=== PATIENT | female | born 1990 | race Caucasian/White ===

== ENCOUNTER 2022-09-28 08:18 | Inpatient (IN) ==
--- NOTE | 2022-08-21 14:02 | PAT Medication Instructions ---
Medication Instructions Date of Service August 21, 2022 Home Medications citalopram 20 mg tablet (Celexa) 20 mg PO QAM gabapentin 100 mg capsule 100 mg PO TID labetalol 300 mg tablet 300 mg PO BID spironolactone 25 mg tablet (Aldactone) 25 mg PO QAM DO NOT take the morning of surgery spironolactone 25 mg tablet (Aldactone) 25 mg PO QAM Take morning of surgery With a small sip of water, OTHERWISE NOTHING TO EAT OR DRINK AFTER MIDNIGHT: citalopram 20 mg tablet (Celexa) 20 mg PO QAM gabapentin 100 mg capsule 100 mg PO TID labetalol 300 mg tablet 300 mg PO BID Take evening before surgery gabapentin 100 mg capsule 100 mg PO TID labetalol 300 mg tablet 300 mg PO BID Other Notes If you have any questions please call us at [phone] or [phone] or [phone] or [phone]
--- NOTE | 2022-09-02 14:18 | Anesthesiology Consultation ---
Date of Service September 02, 2022 Assessment & Plan (1) Encounter for pre-operative examination: Chart Review Chart Review: Acceptable Risk for Surgery (pending surgeon ordered cardio clearance and previous CBC for comparison ) and Patient seen in Pre Admission Testing - Awaiting cardio clearance (the week of September 14) (Dr. Craig) - Please call PCP office and get most recent CBC done with their office for comparison with anemia at PAT appt Per [facility] appt on 09/02/22, patient denies any recent travel or large group activities. 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 Pt is vaccinated for Covid. Will leave to surgeon's discretion if preop Covid testing needed. Educated on importance of using Covid precautions one week prior to surgery Teaching & Discussion Pre-Anesthesia Teaching/Discussion Notes: Instructed NPO after midnight before surgery,except medications with 15 cc of water. Medication instructions provided according to the [facility] guidelines. History Surgery Operation Date: 09/18/22 07:45 Proposed Procedures p L4-S1 Revision Decompression and Fusion, Spinal Cord Monitoring - Rolando Orellana DO Height/Weight Height: 5 ft 4 in Weight: 124.5 kg Allergies Allergy/AdvReac Type Severity Reaction Status Date / Time No Known Allergies Allergy Verified 08/21/22 10:42 Medications Home Medications Medication Instructions Recorded Confirmed Last Taken citalopram 20 mg tablet (Celexa) 20 mg PO QAM 08/21/22 08/21/22 Unknown gabapentin 100 mg capsule 100 mg PO TID 08/21/22 08/21/22 Unknown labetalol 300 mg tablet 300 mg PO BID 08/21/22 08/21/22 Unknown spironolactone 25 mg tablet 25 mg PO QAM 08/21/22 08/21/22 Unknown (Aldactone) Past Medical History Medical History Anemia Anemia since Covid infection 04/2021 Anxiety Chronic back pain History of COVID-19 04/2021- mild symptoms > resolved Hypertension follows with Dr. Craig Migraine Morbid obesity with BMI of 40.0-44.9, adult Exercise / Class Metabolic Activity II 4-5 Yardwork/Stairs/Walk up hill (one flight of stairs - no chest pain or SOB ) Past Family History Family History Other No family history of adverse response to anesthesia Past Surgical History Surgical History History of bilateral tubal ligation History of section 2014 History of cholecystectomy 2014 History of lumbar discectomy x3 History of tonsillectomy 2020 History of wisdom tooth extraction Past Anesthesia History No Hx of Anesthesia Complications and No Family Hx of Anesthesia Complications History of PONV No Hx of PONV and No Hx of Motion Sickness Social History Smoking Status: Never smoker Do You Dip or Chew Tobacco: No Hx Alcohol Use: Yes (very rarely) alcohol intake frequency: holidays/special occasions only Hx Substance Use: No substance use type: does not use Review of Systems Occ reflux - improved with OTC antacids Snoring - no hx of sleep study Patient denies chest pain, shortness of breath, dyspnea on exertion, cough, wheezing, palpitations. No hx of seizures, stroke, [place]. No hx of blood clots or blood transfusions Physical Exam Vital Signs VITALS BP 162/106 (recheck manually 170/106) P 80 TEMP 98.1 SP02 100% RESP 16 Constitutional no acute distress ENMT Mouth: no TMJ clicking Thyromental Distance: > or= 3.5 Finger Breadths (3.5) Mallampati Class: III Permanent retainer to bottom front teeth Neck + short neck and + thick neck; neck extension not limited Respiratory normal respiratory effort; no respiratory distress Auscultation: lungs clear to auscultation bilaterally; no wheezes Cardiovascular Rate/Rhythm: regular rate and regular rhythm Heart Sounds: no murmur Vessels: no carotid bruit Musculoskeletal Spine: no pain with cervical ROM Extremities: extremities normal to inspection Psychiatric Orientation: alert Lab Results Anesthesia Preop Results Results Anesthesia Widget: WBC 7.44 K/ul (4.8-10.8) 09/02/22 Hgb 11.4 g/dl (12.0-16.0) L 09/02/22 Hct 36.9 % (37.0-47.0) L 09/02/22 Plt 258 K/uL (130-400) 09/02/22 Na 139 mmol/L (136-145) 09/02/22 K 3.8 mmol/L (3.5-5.1) 09/02/22 Cl 105 mmol/L (98-107) 09/02/22 CO2 25 mmol/L (21-32) 09/02/22 BUN 9 mg/dl (6-23) 09/02/22 Creat 0.69 mg/dl (0.6-1.2) 09/02/22 Glucose Level 119 mg/dl (70-99(Fasting)) H 09/02/22 PT 10.8 Seconds (9.0-12.0) 09/02/22 PTT 26.0 Seconds (21.0-31.0) 09/02/22 INR 1.0 (0.9-1.1) 09/02/22 Urine Color Yellow 09/02/22 Urine Appearance Clear (Clear) 09/02/22 Urine pH 6.0 (4.5-7.5) 09/02/22 Urine Specific [place] 1.025 (1.000-1.030) 09/02/22 Urine Protein Negative (Negative) 09/02/22 Urine Glucose (UA) Negative (Negative) 09/02/22 Urine Ketones Trace (Negative) H 09/02/22 Urine Blood Trace (Negative) H 09/02/22 Urine Nitrite Negative (Negative) 09/02/22 Urine Bilirubin Negative (Negative) 09/02/22 Urine Urobilinogen Negative (Negative) 09/02/22 Urine Leukocyte Esterase Negative (Negative) 09/02/22 Urine WBC (Auto) 1-5 /hpf (0-5) 09/02/22 Urine RBC (Auto) 5-10 /hpf (0-4) H 09/02/22 Urine Hyaline Casts (Auto) 0 /lpf (0-5) 09/02/22 Urine Epithelial Cells (Auto) >30 /lpf (0-5) H 09/02/22 Urine Bacteria (Auto) Negative (Negative) 09/02/22 Blood Type O Positive 09/02/22 Antibody Screen NEGATIVE 09/02/22 Testing Laboratory Results Chronic anemia per patient Electrocardiogram Date: 09/02/22 Findings: + NSR @ (83bpm ) Normal EKG per cardio Chest X-Ray Date: 09/02/22 Findings: + NAD FINDINGS: PA and lateral chest radiographs are obtained. No prior studies are available for comparison at the time of dictation. The cardiomediastinal silhouette is unremarkable. The lungs and pleural spaces are clear. There is no pneumothorax. The bony thorax appears intact. Cholecystectomy clips are noted in the right upper quadrant. Echocardiogram Date: 06/20/21 EF: 55-60% LV Function: normal Other Findings: no LVH or no diastolic dysfunction Mild TR. COVID-19 Risk Screen Screening Information COVID-19 Screen Date: 09/02/22 Exposure 21 Days Family/Household +COVID Last 21 Days: No Exposure 10 Days Any COVID Exposure Last 10 Days: No Symptoms Last 10 Days Experienced COVID Sx Last 10 Days: No + COVID 0-90 Days COVID + in Last 0-90 Days: No Risk Plan COVID Risk Plan: No Risk Identified Patient Education COVID Preop Screening Education Complete: Yes
[~2022-09-28 08:18] MED LIST: ACETAMINOPHEN 500 MG TAB PO SCH; CeleBREX 200 MG CAP PO SCH; GABAPENTIN 900 MG DOSE PO SCH; LR 15ML/HR IV SCH
[2022-09-28] MEDS ORDERED: MIDAZOLAM HCL 1 MG/ML 2ML VIAL ONE (09:11)
[2022-09-28] MEDS ORDERED: fentaNYL citrate PF 100 MCG/2 ML VIAL ONE (09:11)
--- NOTE | 2022-09-28 09:26 | History & Physical Bridge Note ---
Date of Service September 28, 2022 History & Physical Bridge Note I have examined the patient, reviewed the History & Physical and in the interval since the performance of the History & Physical I have noted the following changes of clinical significance: no changes noted
--- NOTE | 2022-09-28 09:27 | History & Physical Report ---
Date of Service September 28, 2022 Assessment & Plan (1) Neurogenic claudication due to lumbar spinal stenosis: Plan: L4-S1 revision decompression and fusion History of Present Illness Chief Complaint: Back and leg pain Primary Care Provider: Henrique Collins This is a 32-year-old female that presents with persistent back and leg pain after failing since course of nonoperative care she is here for surgical invention. Allergies Allergy/AdvReac Type Severity Reaction Status Date / Time No Known Allergies Allergy Verified 09/28/22 08:32 Home Medications Medication Instructions Recorded Confirmed Type citalopram 20 mg tablet (Celexa) 20 mg PO QAM 08/21/22 09/28/22 History gabapentin 100 mg capsule 100 mg PO TID 08/21/22 09/28/22 History labetalol 300 mg tablet 300 mg PO BID 08/21/22 09/28/22 History spironolactone 25 mg tablet 25 mg PO QAM 08/21/22 09/28/22 History (Aldactone) Past Med/Surg History Medical History Anemia Anemia since Covid infection 04/2021 Anxiety Chronic back pain History of COVID-19 04/2021- mild symptoms > resolved Hypertension follows with Dr. Craig Migraine Morbid obesity with BMI of 40.0-44.9, adult Surgical History History of bilateral tubal ligation History of section 2015 History of cholecystectomy 2014 History of lumbar discectomy x3 History of tonsillectomy 2020 History of wisdom tooth extraction Family History Other No family history of adverse response to anesthesia Social History Smoking Status: Never smoker Second Hand Exposure: No; Do You Dip or Chew Tobacco: No; Tobacco Cessation Education Requested by Patient: No Hx Alcohol Use: Yes (very rarely) Hx Substance Use: No Preferred Language: Croatian Communication Ability: Effective [facility] Representative Required: No Beliefs That Will Affect Care: None Current Living Situation: Family Current Living Situation Comment: Lives with daughter Other Information That Helps Us Care for You: No Feels Safe at Home: Yes Safety Concerns: Feels Safe At This Time Assistive Devices: Glasses Physical Exam Physical Exam: Patient is alert and oriented Heart regular rhythm Lungs clear Results & Data Results & Data Vital Signs (Past 12 Hours) Vital Signs Temp Pulse Resp BP Pulse Ox O2 Del Method 09/28/22 08:49 36.7 C 76 18 121/75 98 Room Air
[2022-09-28] MEDS ORDERED: BUPIVACAINE/EPINEPHRINE 0.25% 1:200,000 30 ML VIAL ONE (09:58)
[2022-09-28] MEDS ORDERED: ceFAZolin 330 MG/ML 1 GM VIAL ONE (09:58)
[2022-09-28] MEDS ORDERED: KETAMINE 50 MG/5 ML SYRINGE ONE (10:33)
[2022-09-28] MEDS ORDERED: ePHEDrine sulfate 50 MG/ML AMP ONE ×2 (10:41→10:43)
[2022-09-28] MEDS ORDERED: PROPOFOL IV EMULSION 10 MG/ML 20 ML VIAL IV ONE (10:42)
[2022-09-28] MEDS ORDERED: ROCURONIUM BROMIDE 10 MG/ML 5 ML VIAL IV ONE ×8 (10:42)
[2022-09-28] MEDS ORDERED: LIDOCAINE 2% 2 ML VIAL/AMP(20MG/ML) INFIL ONE (10:42)
[2022-09-28] MEDS ORDERED: DEXAMETHASONE SOD INJ 4 MG/ML VIAL ONE (10:43)
[2022-09-28] MEDS ORDERED: ONDANSETRON INJ 2 MG/ML 2 ML VIAL ONE (10:43)
[2022-09-28] MEDS ORDERED: SUGAMMADEX SODIUM 200 MG/2 ML VIAL IV ONE (11:58)
[2022-09-28] MEDS ORDERED: HYDROmorphone INJ 2 MG/ML SYR/VIAL ONE (12:00)
--- NOTE | 2022-09-28 12:05 | Operative Report ---
Post Operative Report Pre & Post Diagnosis Operation Date: 09/28/22 10:05 Pre-Op Diagnosis: Neurogenic claudication due to lumbar spinal stenosis Morbid obesity Post-Op Diagnosis: Same I identified the patient and participated in the time-out.: Yes Procedure Operation Date: 09/28/22 10:05 Actual Procedures 1. Revision decompression with bilateral medial facetectomies and foraminotomies L3-L4, L4-5 and L5-S1. #2 posterior spinal fusion L4-L5 L5-S1. #3 placement posterior instrumentation L4-5 L5-S1. #4 interbody fusion L4-L5 L5-S1. #5 placement of Spira 11 x 26 mm at L4-5 and 13 x 26 mm at L5-S1. #6 placement locally harvested morselized autograft in the posterior gutters. #7 placement of I factor combined with V toss in the interbody space and posterior gutters. Surgeon Rolando Orellana, DO Backup Administrative Coordinator Clare Rose Estimated Blood Loss 50 Findings See Below The patient is 5 foot 4 weighing over 122 kg with a BMI in excess of 46. The patient's body habitus did contribute to significant technical difficulty requiring her deepest retractors and longer instruments in order to perform her procedure. This had at least 50% increased operative time. Specimens none Indications This is a 32-year-old female who presents above-mentioned diagnosis after failing since course of nonoperative care is here for surgical invention. Description of Procedure Patient was met with identified informed consent obtained. Patient was then taken to the operative suite underwent a patient placed in a prone position the [place] table top Micah frame. All bony prominences well-padded eyes inspected to ensure no external pressure placed upon them. This point the lumbar spine was prepped and draped in normal sterile fashion. Sharp dissection with the assistance of Bovie cautery was then performed down to and exposing the remaining lamina and transverse processes of L4-L5 and sacral ala bilaterally. From a caudal cephalad fashion complete revision laminectomy L5 L4 and partial laminectomy of L3 was performed including bilateral medial facetectomies and foraminotomies dressing all stenosis and overgrowth of scar. Pedicle screws then placed in L4-L5 and S1 levels bilaterally with assistance of fluoroscopy and the properly sized key placed. By way of a trans foraminal approach on the right complete discectomy of L5-S1 was performed endplates corrected to subcortical bleeding bone and a 13 x 26 mm Spira cage with I factor tapped in position. Then proceeded to L for L5 and again by way of a transfemoral approach and right complete discectomy performed endplates curetted to subcortically bone and a 11 x 26 mm Spira cage with I factor tapped in position. The rods were then locked in final position bilaterally. The transverse processes of L4-5 and sacral ala burred to subcortically and bone. I factor amount of the test and locally harvested morselized autograft was placed in the posterior gutters. 15 round UNA inserted. The incision was then closed with 1 Vicryl the fascia 2-0 Vicryl subcutaneously and 4 Monocryl for final skin closure. Steri-Strips sterile dressing placed. Patient waken taken to PACU in stable condition. Please note spinal cord monitoring was utilized at the procedure no changes noted. Lastly Clare Rose was present at the entire surgery involved the patient positioning complex portions of the surgery and final skin closure. I attest to the content of the Intraoperative Record and any orders documented therein. Any exceptions are noted below.
--- NOTE | 2022-09-28 12:43 | Fluoroscopy Report ---
FL lumbar spine 2-3V CLINICAL HISTORY: L4-S1 DFI TECHNIQUE: 2 views were obtained with the C-arm in the OR with the above procedure. Total fluoroscopy time was 400 seconds. Radiation dose was 75.37 mGy. Comparison: None available at the time of this dictation. FINDINGS/IMPRESSION: Intraoperative images were obtained of L4-S1 discectomy and fusion. Please correlate with intraoperative fluoroscopy and operative report. ACT 112: Negative or not required by law. Electronically signed by: Alli Lucas M.D. 09/28/2022 12:42 PM
--- NOTE | 2022-09-28 13:00 | Anesthesiology Progress Note ---
Date of Service September 28, 2022 Anesthesia Post Procedure Vital Signs Vital Signs: Temp Pulse Pulse Resp BP Pulse Ox O2 Del Method 09/28/22 12:50 87 14 136/86 95 Nasal Cannula 09/28/22 12:40 77 14 122/96 97 Oxymask 09/28/22 12:30 67 13 136/82 97 Oxymask 09/28/22 12:20 97.5 F L 74 17 141/84 H 99 Oxymask 09/28/22 08:49 98.1 F 76 18 121/75 98 Room Air O2 Flow Rate 09/28/22 12:50 2 09/28/22 12:40 6 09/28/22 12:30 6 09/28/22 12:20 6 09/28/22 08:49 Pain Intensity Back: Pain Intensity: 9 Transfer of Care Handoff Completed per policy Notes Mental Status: alert / awake / arousable and participated in evaluation Patient Amnestic to Procedure: Yes Nausea / Vomiting: adequately controlled Pain: adequately controlled Airway Patency, RR, SpO2: stable & adequate BP & HR: stable & adequate Hydration State: stable & adequate Anesthetic Complications: no major complications apparent and Pt Satisfied with anesthetic care
[2022-09-28] MEDS ORDERED: ONDANSETRON INJ 2 MG/ML 2 ML VIAL IV PRN (13:21)
[2022-09-28] MEDS ORDERED: DO NOT ADMINISTER PNEUMOCOCCAL VACCINE PRN (13:21)
[2022-09-28] MEDS ORDERED: ALUMINUM/MAGNESIUM SUSP 30 ML UDC PO PRN (13:21)
[2022-09-28] MEDS ORDERED: HYDROmorphone INJ 1 MG/ML SYRINGE IV PRN (13:21)
[2022-09-28] MEDS ORDERED: FAMOTIDINE 20 MG TAB PO PRN (13:21)
[2022-09-28] MEDS ORDERED: NALOXONE HCL 0.4 MG/1 ML VIAL/CARP IV PRN (13:21)
[2022-09-28] MEDS ORDERED: PROMETHAZINE HCL 12.5 MG in SODIUM CHLORIDE 0.9% 50 ML IV PRN (13:21)
[2022-09-28] MEDS ORDERED: MAGNESIUM HYDROXIDE SUSP 30 ML UDC PO PRN (13:21)
[2022-09-28] MEDS ORDERED: DO NOT ADMINISTER FLU VACCINE PRN (13:21)
[2022-09-28] MEDS ORDERED: SOD PHOSPHATE/SOD BIPHOSPHATE ENEMA 132 ML BTL PR PRN (13:21)
[2022-09-28] MEDS ORDERED: LORazepam 2 MG/1 ML VIAL IV PRN (13:21)
[2022-09-28] MEDS ORDERED: LORazepam 0.5 MG TAB PO PRN (13:21)
[2022-09-28] MEDS ORDERED: diphenhydrAMINE Capsule 25 MG CAP PO PRN (13:21)
[2022-09-28] MEDS ORDERED: ACETAMINOPHEN 500 MG TAB PO PRN (13:21)
[2022-09-28] MEDS ORDERED: METOCLOPRAMIDE HCL INJ 5 MG/ML 2 ML VIAL IV PRN (13:21)
[2022-09-28] MEDS ORDERED: bisacodyL 10 MG SUPP PR PRN (13:21)
[2022-09-28] MEDS ORDERED: HYDROmorphone INJ 0.5 MG/0.5 ML SYR IV PRN (13:21)
[2022-09-28] MEDS ORDERED: ONDANSETRON 4 MG OD TAB PO PRN (13:21)
[2022-09-28] MEDS ORDERED: ACETAMINOPHEN 1,000 MG/100 ML VIAL IV PRN (13:21)
[2022-09-28] MEDS ORDERED: hydrOXYzine HCl 25 MG TAB PO PRN (13:21)
[2022-09-28] MEDS ORDERED: traMADol HCL 50 MG TABLET PO PRN (13:21)
[2022-09-28] MEDS: oxyCODONE HCL IR 5 MG TAB (IMMEDIATE RELEASE) PO PRN ×2 (13:36→19:48)
[2022-09-28] MEDS: LACTATED RINGER'S 1,000 ML IV SCH ×3 (13:36→23:47)
--- NOTE | 2022-09-28 14:33 | Hospitalist Consultation ---
Date of Consultation September 28, 2022 Assessment & Plan (1) Status post lumbar spine operation: 32-year-old female with possible history of hypertension, anxiety, and anemia who was consulted for management of chronic medical conditions status post lumbar spine surgery on 09/28/22. Surgeries performed per operative note: 1. Revision decompression with bilateral medial facetectomies and foraminotomies L3-L4, L4-5 and L5-S1. #2 posterior spinal fusion L4-L5 L5-S1. #3 placement posterior instrumentation L4-5 L5-S1. #4 interbody fusion L4-L5 L5-S1. #5 placement of Spira 11 x 26 mm at L4-5 and 13 x 26 mm at L5-S1. #6 placement locally harvested morselized autograft in the posterior gutters. #7 placement of I factor combined with V toss in the interbody space and posterior gutters. Reviewed outpatient 07/27/22 MRI L spine w/o contrast. Impression. 1. Decreased, small right central/right subarticular caudally directed disc extrusion abutting the right L5 transiting spinal nerve roots and mildly narrowing the right subarticular recess at L4-L5. 2. Increased posterior central and right central c ranially directed disc extrusion at L5-S1 with increased mass effect on the right S1 transiting spinal nerve roots and moderate narrowing of the right-sided articular recess. Increased, mild central canal stenosis at L5-S1. -Pain regimen (prn Tylenol, oxycodone, and Dilaudid), Decadron 6mg dailyx3, postop ancef, and PT per ortho spine. Prn hydroxyzine for anxiety. q6 Miralax. -Postop labs in AM, sooner if symptomatic (2) Neurogenic claudication due to lumbar spinal stenosis: Chronic, see above. Prior to this, had hx of lumbar discectomy x3. Continue home gabapentin 100mg PO TID. (3) Hypertension: Stable, continue labetalol 300mg PO BID (halve 1 dose in setting of postop) and spironolactone 25mg PO qAM (per cardiology note, also for HTN). Screened neg for FAB. W/ her large home BP regimen, PCP to consider other causes of secondary HTN. (4) Iron deficiency anemia: Chronic. States was discovered by PCP after 04/2021 covid infection. 09/02/22 Hb 11.4, mcv 75.8. Per 05/2022 iron studies: iron 28. uibc 401. ibc 429. fe sat 6.5%. ferritin 13. Recommend iron supplementation: patient to fill rx (iron polysaccharides 150mg PO BID) sent by PCP in 05/2022. (5) Morbid obesity with BMI of 40.0-44.9, adult: Check a1c with AM labs. (6) Missed period: Last period started on 08/04/22. Check urine hcg. (7) Microscopic hematuria: Per 09/02/22 preop labs. Trace blood. 5-10 RBC /hpf on microscopy. PCP to follow. (8) Hyperlipidemia: Per 05/27/22 outpatient labs, total chol 191, tg 136, hdl 31, ldl 133. Encourage lifestyle modifications. (9) Anxiety: Stable, continue home citalopram 20mg PO qam. Plan Diet, fluids: Regular diet. LR 150mL/hr for now. DVT ppx: Defer to ortho spine. SCDs. code: full dispo: med surg Supervising Physician Co-Signing Physician Notes Patient seen and examined, chart reviewed, case discussed with Dr. Lock and I agree with the assessment and plan as above except as otherwise noted Labs and images reviewed Deya is a 32-year-old female with a history of hypertension, anxiety, anemia who presented for surgical intervention of neurogenic claudication due to lumbar spinal stenosis. S/p revision decompression, facetectomies, and foraminotomies with spinal fusion. Deya is seen at the bedside. She notes she could not feel her R leg and had numbness/tingling preop and now has normal feeling in the leg postop. She is having some postoperative pain, notes she has had several surgeries previous to this and pain in her back is consistent with prior surgies. UNA drain is in place draining serosanguineous fluid. Sensation to soft touch is intact in hands and feet bilaterally, cap refill intact, PT pulse intact bilat. No questions or concerns at bedside. Agree with management as above History of Present Illness Reason for Consultation: postop Requesting Physician: Rolando Orellana DO. spine surgeon Attending Physician: Abhijeet Antonio MD. hospitalist History of Present Illness 32-year-old female with past medical history of hypertension, anxiety, iron deficiency anemia, and chronic low back pain w/ R>L radiculopathy s/p 3 lumbar laminectomies who was consulted for management of chronic medical conditions status post lumbar spine surgery on 09/28/22. Currently feels tired/sore. Rates pain at site of surgery as 9/10. States this is her 4th back surgery. Backstory of her back pain: was and was pulling on box, fell backwards. States had laminectomies at L4-L5, L5-S1, L4-L5. 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 Was having radiculopathy symptoms of posterior R leg with complete numb sensation. Numbness/tingling of foot. Pain radiated down back of her thigh/leg. Hx of heavy periods. She has not started taking iron supplementation. She notes she missed her period this past month, last period started on 08/04/22. S/p tubal. Takes gabapentin for her R>L radiculopathy. She took her BP meds this morning. Snores. Denies apnea. Attributes fatigue to working busy schedule. States iron labs checked 05/2022. Reviewed records from [facility] patient portal on patient's phone. Allergies Allergy/AdvReac Type Severity Reaction Status Date / Time No Known Allergies Allergy Verified 09/28/22 08:32 Home Medications Medication Instructions Recorded Confirmed Type citalopram 20 mg tablet (Celexa) 20 mg PO QAM 08/21/22 09/28/22 History gabapentin 100 mg capsule 100 mg PO TID 08/21/22 09/28/22 History labetalol 300 mg tablet 300 mg PO BID 08/21/22 09/28/22 History spironolactone 25 mg tablet 25 mg PO QAM 08/21/22 09/28/22 History (Aldactone) Patient History Medical History Anemia Anemia since Covid infection 04/2021 Anxiety Chronic back pain History of COVID-19 04/2021- mild symptoms > resolved Hypertension follows with Dr. Craig Migraine Morbid obesity with BMI of 40.0-44.9, adult Surgical History History of bilateral tubal ligation History of section 2015 History of cholecystectomy 2014 History of lumbar discectomy x3 History of tonsillectomy 2020 History of wisdom tooth extraction Family History Other No family history of adverse response to anesthesia Social History Smoking Status: Never smoker Second Hand Exposure: No; Do You Dip or Chew Tobacco: No; Tobacco Cessation Education Requested by Patient: No Hx Alcohol Use: Yes (very rarely) Hx Substance Use: No Preferred Language: Nepali Communication Ability: Effective 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 NAD. Cooperative. HEENT: Atraumatic, normocephalic. EOMI Pulm: CTAB. -wheezes, -rales, -rhonchi. No respiratory distress. Cardiac: RRR. Reportedly w/ chronic bilat LE edema. Wearing SANTOS stockings; difficult to assess LE edema. Abdominal: Nontender, nondistended, soft. : + tucker, voiding trial planned for AM of 09/29/22. Msk: Moving all extremities. Back: + UNA drain w/ serosang fluid. Neuro: Sensation to light touch of bilat dorsal feet and hands intact. 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 Integ: Low back bandage is c/d/i. Results & Data Results & Data Vital Signs (Past 12 Hours) Vital Signs Temp Pulse Pulse Pulse Resp BP Pulse Ox 09/28/22 13:50 36.3 C L 64 16 125/72 98 09/28/22 13:20 36.5 C 87 16 133/79 97 09/28/22 13:00 37.0 C 68 12 121/80 97 09/28/22 12:50 87 14 136/86 95 09/28/22 12:40 77 14 122/96 97 09/28/22 12:30 67 13 136/82 97 09/28/22 12:20 36.4 C L 74 17 141/84 H 99 09/28/22 08:49 36.7 C 76 18 121/75 98 O2 Del Method O2 Flow Rate 09/28/22 13:50 Nasal Cannula 2 09/28/22 13:20 Nasal Cannula 2 09/28/22 13:00 Nasal Cannula 2 09/28/22 12:50 Nasal Cannula 2 09/28/22 12:40 Oxymask 6 09/28/22 12:30 Oxymask 6 09/28/22 12:20 Oxymask 6 09/28/22 08:49 Room Air Laboratory Results Intake and Output 09/27/22 09/28/22 09/28/22 22:59 06:59 14:59 Intake Total 1822.5 / 1822.5 Output Total 340 / 340 Balance 1482.5 / 1482.5 Intake: IV 72.5 / 72.5 Lactated Ringer's 1,000 ml @ 15 0 / 0 mls/hr IV .Q24H ANJU Rx#: [id number] ceFAZolin 3000MG 72.5 ml @ 130 72.5 / 72.5 mls/hr IV PREOP ANJU Rx#: [id number] IV Perioperative 1200 / 1200 Oral 550 / 550 Output: Estimated Blood Loss 50 / 50 Urine Amount (Catheter) 225 / 225 Tucker/Indwelling 225 / 225 Drain Output 65 / 65 Back UNA 65 / 65 Other: Weight 122.4 kg Weight Measurement Method Standing Scale Patient Weight 09/29/22 06:59 Weight 122.4 kg Diagnostic Findings Lumbar Spine X-Ray 09/28/22 10:05 FL lumbar spine 2-3V CLINICAL HISTORY: L4-S1 DFI TECHNIQUE: 2 views were obtained with the C-arm in the OR with the above procedure. Total fluoroscopy time was 400 seconds. Radiation dose was 75.37 mGy. Comparison: None available at the time of this dictation. FINDINGS/IMPRESSION: Intraoperative images were obtained of L4-S1 discectomy and fusion. Please correlate with intraoperative fluoroscopy and operative report. ACT 112: Negative or not required by law. Electronically signed by: Alli Lucas M.D. 09/28/2022 12:42 PM Per review of outside echo 06/20/21, EF 55-60, mild tricuspid and pulmonic regurg. ECG Additional Comments: 09/02/22 ecg reviewed. NSR 83. Resident Activity Tracking Resident Involvement: Resident Care Provided Care Provided: [facility]
[2022-09-28] MEDS: GABAPENTIN 100 MG CAP PO SCH ×2 (15:12→19:48)
[2022-09-28] MEDS: ceFAZolin 2000MG 2,000 MG/15 ML SYR IV SCH (17:11)
[2022-09-28 17:30] LABS: Pregnancy Test, Urine Negative (Negative)
[2022-09-28] MEDS: DOCUSATE SODIUM/SENNA 50/8.6MG TAB PO SCH (19:48)
[2022-09-28] MEDS ORDERED: LABETALOL HCL 100 MG TAB PO ONE (21:00)
[2022-09-28] MEDS ORDERED: LABETALOL HCL 300 MG TAB PO SCH (21:00)
[2022-09-29] MEDS: ceFAZolin 2000MG 2,000 MG/15 ML SYR IV SCH (02:08)
[2022-09-29] MEDS: oxyCODONE HCL IR 5 MG TAB (IMMEDIATE RELEASE) PO PRN ×4 (02:13→17:45)
[2022-09-29] MEDS: POLYETHYLENE (MIRALAX) 17 GM PACK PO SCH ×4 (05:29→23:43)
[2022-09-29 05:59] LABS: Basophils # (auto) 0.01 K/uL (0-0.2); Basophils % (auto) 0.1 %; Eosinophils # (auto) 0.01 K/uL (0-0.50); Eosinophils % (auto) 0.1 %; Hematocrit (blood only) 33.2 % (37.0-47.0); Hemoglobin 10.4 g/dl (12.0-16.0); Immature Granulocytes # (auto) 0.04 K/uL (0.01-0.20); Immature Granulocytes % (auto) 0.4 %; Lymphocytes # (auto) 0.66 K/uL (1.2-3.4); Lymphocytes % (auto) 5.9 %; Mean Corpuscular Hgb Conc 31.3 g/dL (32.0-36.0); Mean Corpuscular Volume 76.7 fL (80.0-100.0); Mean Platelet Volume 10.1 fL (9.4-12.4); Monocytes # (auto) 0.79 K/uL (0.11-0.59); Neutrophils # (auto) 9.76 K/uL (1.40-6.50); Neutrophils % (auto) 86.5 %; Platelet Count 251 K/uL (130-400); RDW Coefficient of Variation 14.7 % (11.5-14.5); RDW Standard Deviation 40.6 fL (36.4-46.3); Red Blood Count 4.33 M/uL (4.20-5.40); White Blood Count 11.27 K/ul (4.8-10.8)
[2022-09-29 06:13] LABS: BUN Creatinine Ratio 15.8 (10-20); Calcium 8.7 mg/dl (8.6-10.3); Creatinine Clr Calc Pharmacy 137.2 ml/min; Est GFR (African American) 120.3 ml/min; Est GFR (Non-African American) 103.8 ml/min; Magnesium 1.9 mg/dl (1.7-2.4); Potassium 4.1 mmol/L (3.5-5.1)
[2022-09-29] MEDS: GABAPENTIN 100 MG CAP PO SCH ×3 (08:44→20:50)
[2022-09-29] MEDS: CITALOPRAM 20 MG TAB PO SCH (08:44)
[2022-09-29] MEDS: LABETALOL HCL 300 MG TAB PO SCH ×2 (08:44→20:50)
[2022-09-29] MEDS: SPIRONOLACTONE 25 MG TAB PO SCH (08:44)
[2022-09-29] MEDS: dexAMETHasone 6 MG in SYRINGE 0 ML IV SCH (08:44)
[2022-09-29 08:59] LABS: Estimated Average Glucose 134 mg/dl; Hemoglobin A1C 6.3 % (4.5-5.6)
--- NOTE | 2022-09-29 14:29 | Orthopedic Progress Note ---
Date of Service September 29, 2022 Assessment & Plan (1) Status post lumbar spine operation: Plan: At this time initiate physical therapy monitor her UNA operatively discharge home in the next few days. Admission and Anticipated Discharge Date Admission Date: September 28, 2022 Subjective Back pain controlled leg pain improved Physical Exam Physical Exam: Patient has good strength testing. Appears comfortable. Results & Data Vital Signs (Past 12 Hours) Vital Signs Temp Pulse Pulse Resp BP BP Pulse Ox 09/29/22 11:20 36.7 C 78 16 116/69 94 09/29/22 08:45 09/29/22 07:05 36.8 C 68 14 116/69 96 09/29/22 03:00 36.5 C 78 18 117/74 97 O2 Del Method 09/29/22 11:20 Room Air 09/29/22 08:45 Room Air 09/29/22 07:05 Room Air 09/29/22 03:00 Room Air Queries Orthopedic Spine Obesity: Yes
--- NOTE | 2022-09-29 15:26 | Hospitalist Progress Note ---
Date of Service September 29, 2022 Assessment & Plan (1) Hypertension: Plan: Stable, continue labetalol 300mg PO BID (halve 1 dose in setting of postop) and spironolactone 25mg PO qAM (per cardiology note, also for HTN). Screened neg for FAB. W/ her large home BP regimen, PCP to consider other causes of secondary HTN. (2) Iron deficiency anemia: Plan: Chronic. States was discovered by PCP after 04/2021 covid infection. 09/02/22 Hb 11.4, mcv 75.8. Per 05/2022 iron studies: iron 28. uibc 401. ibc 429. fe sat 6.5%. ferritin 13. Recommend iron supplementation: patient to fill rx (iron polysaccharides 150mg PO BID) sent by PCP in 05/2022. (3) Status post lumbar spine operation: Plan: 32-year-old female with possible history of hypertension, anxiety, and anemia who was consulted for management of chronic medical conditions status post lumbar spine surgery on 09/28/22. Surgeries performed per operative note: 1. Revision decompression with bilateral medial facetectomies and foraminotomies L3-L4, L4-5 and L5-S1. #2 posterior spinal fusion L4-L5 L5-S1. #3 placement posterior instrumentation L4-5 L5-S1. #4 interbody fusion L4-L5 L5-S1. #5 placement of Spira 11 x 26 mm at L4-5 and 13 x 26 mm at L5-S1. #6 placement locally harvested morselized autograft in the posterior gutters. #7 placement of I factor combined with V toss in the interbody space and posterior gutters. Reviewed outpatient 07/27/22 MRI L spine w/o contrast. Impression. 1. Decreased, small right central/right subarticular caudally directed disc extrusion abutting the right L5 transiting spinal nerve roots and mildly narrowing the right subarticular recess at L4-L5. 2. Increased posterior central and right central cranially directed disc extrusion at L5-S1 with increased mass effect on the right S1 transiting spinal nerve roots and moderate narrowing of the right-sided articular recess. Increased, mild central canal stenosis at L5-S1. -Pain regimen (prn Tylenol, oxycodone, and Dilaudid), Decadron 6mg dailyx3, postop ancef, and PT per ortho spine. Prn hydroxyzine for anxiety. q6 Miralax. -Kade of mgt per ortho (4) Neurogenic claudication due to lumbar spinal stenosis: Plan: Chronic, see above. Prior to this, had hx of lumbar discectomy x3. Continue home gabapentin 100mg PO TID. (5) Morbid obesity with BMI of 40.0-44.9, adult: Plan: Check a1c with AM labs. (6) Missed period: Plan: negative test (7) Microscopic hematuria: Plan: Per 09/02/22 preop labs. Trace blood. 5-10 RBC /hpf on microscopy. PCP to follow. (8) Hyperlipidemia: (9) Anxiety: Plan: Stable, continue home citalopram 20mg PO qam. Plan Diet, fluids: Regular diet. LR 150mL/hr for now. DVT ppx: Defer to ortho spine. SCDs. code: full dispo: discharge plans per ortho Admission and Anticipated Discharge Date Admission Date: September 28, 2022 Subjective patent seen and examined, UNA drain in situ, stable post surgery, tolerating diet, but has not had a BM Review of Systems Review of Systems: All systems reviewed are negative, apart from the ones contained in the history. Physical Exam Physical Exam: The patient is awake, alert and oriented 3, well developed and well nourished, normocephalic and atraumatic, lying in bed and in no acute distress. HEENT--PERRL, EOMI, mucous membranes and oropharynx mildly dry Neck--supple. No JVD. No bruits. Thyroid normal, trachea midline, no adenopathy. Heart--normal S1 and S2. No murmurs, rubs or gallops. Lungs--clear bilaterally, no respiratory distress, no accessory muscle use. Abdomen--normal bowel sounds and soft. Mild epigastric and left sided abdominal pain Extremities--no cyanosis or clubbing. No edema. Dermatologic--normal skin turgor, normal color, no abnormal lymph nodes, no rash. Neurologic--cranial nerves II through XII grossly intact. Rheumatologic--normal range of motion. Psychiatric--normal affect. Results & Data Results & Data Vital Signs (Past 12 Hours) Vital Signs Temp Pulse Pulse Resp BP BP Pulse Ox 09/29/22 11:20 98.1 F 78 16 116/69 94 09/29/22 08:45 09/29/22 07:05 98.2 F 68 14 116/69 96 O2 Del Method 09/29/22 11:20 Room Air 09/29/22 08:45 Room Air 09/29/22 07:05 Room Air PG Care Time/CCT Total # of Minutes Spent Total Time Spent with Patient: Total time spent is greater than 50% in coordination of care (as documented) at patient's floor/unit and/or counseling patient: Coding Level of Care Code 55450 SUB INP/OBS CARE 2/35MIN Diagnoses Hypertension I10 Iron deficiency anemia D50.9 Status post lumbar spine operation Z98.890 Neurogenic claudication due to lumbar spinal stenosis M48.062 Morbid obesity with BMI of 40.0-44.9, adult E66.01; Z68.41 Missed period N92.6 Microscopic hematuria R31.29 Hyperlipidemia E78.5 Anxiety F41.9 Time Spent (min) 35
[2022-09-29] MEDS: DOCUSATE SODIUM/SENNA 50/8.6MG TAB PO SCH (20:50)
[2022-09-30] MEDS: oxyCODONE HCL IR 5 MG TAB (IMMEDIATE RELEASE) PO PRN ×3 (01:15→12:21)
[2022-09-30] MEDS: POLYETHYLENE (MIRALAX) 17 GM PACK PO SCH ×4 (06:16→23:02)
[2022-09-30] MEDS: GABAPENTIN 100 MG CAP PO SCH ×3 (07:47→20:15)
[2022-09-30] MEDS: CITALOPRAM 20 MG TAB PO SCH (07:47)
[2022-09-30] MEDS: LABETALOL HCL 300 MG TAB PO SCH ×2 (07:49→20:15)
[2022-09-30] MEDS: SPIRONOLACTONE 25 MG TAB PO SCH (07:49)
[2022-09-30] MEDS: dexAMETHasone 6 MG in SYRINGE 0 ML IV SCH (07:50)
--- NOTE | 2022-09-30 08:17 | Orthopedic Progress Note ---
Date of Service September 30, 2022 Assessment & Plan (1) Neurogenic claudication due to lumbar spinal stenosis: Plan: Deya is postoperative day 2 status post revision decompression fusion L4-S1. She will continue with physical therapy and ambulation today. Maintain UNA drain and dressing. DVT prophylaxis is in the form of teds and SCDs. Continue with pain control. Work on aggressive bowel regimen. Anticipate discharge home tomorrow. Admission and Anticipated Discharge Date Admission Date: September 28, 2022 Subjective Deya is postoperative day 2 status post revision decompression and fusion L4- S1. She feels great. She is passing flatus but no bowel movement. Lower extremity symptoms greatly improved. Yesterday in physical therapy ambulating 290 feet. She is also ambling the hallways. UNA drain output last shift was 60 cc. Otherwise she had an uneventful evening. Review of Systems Review of Systems: All systems reviewed & are unremarkable except as noted in HPI & below Physical Exam Physical Exam: She is up and ambulatory around the room No acute distress Alert and oriented x3 Lumbar dressing is clean dry and intact with functioning UNA drain Strength intact bilateral lower Calf soft nontender bilaterally Results & Data Vital Signs (Past 12 Hours) Vital Signs Temp Pulse Resp BP Pulse Ox O2 Del Method 09/30/22 07:46 36.6 C 88 16 113/72 98 Room Air 09/30/22 03:17 36.8 C 80 18 122/78 97 Room Air 09/29/22 20:48 36.7 C 82 18 133/84 96 Room Air
--- NOTE | 2022-09-30 15:21 | Hospitalist Progress Note ---
Date of Service September 30, 2022 Assessment & Plan (1) Hypertension: Plan: OBDULIA is under good control continue home meds (2) Iron deficiency anemia: Plan: Chronic. States was discovered by PCP after 04/2021 covid infection. 09/02/22 Hb 11.4, mcv 75.8. Per 05/2022 iron studies: iron 28. uibc 401. ibc 429. fe sat 6.5%. ferritin 13. Recommend iron supplementation: patient to fill rx (iron polysaccharides 150mg PO BID) sent by PCP in 05/2022. (3) Status post lumbar spine operation: Plan: 32-year-old female with possible history of hypertension, anxiety, and anemia who was consulted for management of chronic medical conditions status post lumbar spine surgery on 09/28/22. Surgeries performed per operative note: 1. Revision decompression with bilateral medial facetectomies and foraminotomies L3-L4, L4-5 and L5-S1. #2 posterior spinal fusion L4-L5 L5-S1. #3 placement posterior instrumentation L4-5 L5-S1. #4 interbody fusion L4-L5 L5-S1. #5 placement of Spira 11 x 26 mm at L4-5 and 13 x 26 mm at L5-S1. #6 placement locally harvested morselized autograft in the posterior gutters. #7 placement of I factor combined with V toss in the interbody space and posterior gutters. Reviewed outpatient 07/27/22 MRI L spine w/o contrast. Impression. 1. Decreased, small right central/right subarticular caudally directed disc extrusion abutting the right L5 transiting spinal nerve roots and mildly narrowing the right subarticular recess at L4-L5. 2. Increased posterior central and right central cranially directed disc extrusion at L5-S1 with increased mass effect on the right S1 transiting spinal nerve roots and moderate narrowing of the right-sided articular recess. Increased, mild central canal stenosis at L5-S1. -Pain regimen (prn Tylenol, oxycodone, and Dilaudid), Decadron 6mg dailyx3, postop ancef, and PT per ortho spine. Prn hydroxyzine for anxiety. q6 Miralax. -Kade of mgt per ortho (4) Neurogenic claudication due to lumbar spinal stenosis: Plan: Chronic, see above. Prior to this, had hx of lumbar discectomy x3. Continue home gabapentin 100mg PO TID. (5) Morbid obesity with BMI of 40.0-44.9, adult: Plan: Check a1c with AM labs. (6) Missed period: Plan: negative test (7) Microscopic hematuria: Plan: Per 09/02/22 preop labs. Trace blood. 5-10 RBC /hpf on microscopy. PCP to follow. (8) Hyperlipidemia: (9) Anxiety: Plan: Stable, continue home citalopram 20mg PO qam. Plan Diet, fluids: Regular diet. LR 150mL/hr for now. DVT ppx: Defer to ortho spine. SCDs. code: full dispo: discharge plans per ortho Admission and Anticipated Discharge Date Admission Date: September 28, 2022 Subjective patient seen and examined, doing well post surgery, had a BM Review of Systems Review of Systems: All systems reviewed are negative, apart from the ones contained in the history. Physical Exam Physical Exam: The patient is awake, alert and oriented 3, well developed and well nourished, normocephalic and atraumatic, lying in bed and in no acute distress. HEENT--PERRL, EOMI, mucous membranes and oropharynx mildly dry Neck--supple. No JVD. No bruits. Thyroid normal, trachea midline, no adenopathy. Heart--normal S1 and S2. No murmurs, rubs or gallops. Lungs--clear bilaterally, no respiratory distress, no accessory muscle use. Abdomen--normal bowel sounds and soft. Mild epigastric and left sided abdominal pain Extremities--no cyanosis or clubbing. No edema. Dermatologic--normal skin turgor, normal color, no abnormal lymph nodes, no rash. Neurologic--cranial nerves II through XII grossly intact. Rheumatologic--normal range of motion. Psychiatric--normal affect. Results & Data Results & Data Vital Signs (Past 12 Hours) Vital Signs Temp Pulse Resp BP Pulse Ox O2 Del Method 09/30/22 07:46 97.9 F 88 16 113/72 98 Room Air PG Care Time/CCT Total # of Minutes Spent Total Time Spent with Patient: Total time spent is greater than 50% in coordination of care (as documented) at patient's floor/unit and/or counseling patient: Coding Level of Care Code 37503 SUB INP/OBS CARE 2/35MIN Diagnoses Hypertension I10 Iron deficiency anemia D50.9 Status post lumbar spine operation Z98.890 Neurogenic claudication due to lumbar spinal stenosis M48.062 Morbid obesity with BMI of 40.0-44.9, adult E66.01; Z68.41 Missed period N92.6 Microscopic hematuria R31.29 Hyperlipidemia E78.5 Anxiety F41.9 Time Spent (min) 35
[2022-09-30] MEDS: DOCUSATE SODIUM/SENNA 50/8.6MG TAB PO SCH (20:23)
[2022-10-01] MEDS: POLYETHYLENE (MIRALAX) 17 GM PACK PO SCH (05:39)
[2022-10-01] MEDS: SPIRONOLACTONE 25 MG TAB PO SCH (08:50)
[2022-10-01] MEDS: CITALOPRAM 20 MG TAB PO SCH (08:50)
[2022-10-01] MEDS: oxyCODONE HCL IR 5 MG TAB (IMMEDIATE RELEASE) PO PRN (08:50)
[2022-10-01] MEDS: GABAPENTIN 100 MG CAP PO SCH (08:50)
[2022-10-01] MEDS: LABETALOL HCL 300 MG TAB PO SCH (08:50)
[2022-10-01] MEDS: dexAMETHasone 6 MG in SYRINGE 0 ML IV SCH (08:52)
--- NOTE | 2022-10-01 11:45 | Hospitalist Progress Note ---
Date of Service October 01, 2022 Assessment & Plan (1) Hypertension: Plan: BP is under good control continue home meds (2) Iron deficiency anemia: Plan: Chronic. States was discovered by PCP after 04/2021 covid infection. 09/02/22 Hb 11.4, mcv 75.8. Per 05/2022 iron studies: iron 28. uibc 401. ibc 429. fe sat 6.5%. ferritin 13. Recommend iron supplementation: patient to fill rx (iron polysaccharides 150mg PO BID) sent by PCP in 05/2022. (3) Status post lumbar spine operation: Plan: 32-year-old female with possible history of hypertension, anxiety, and anemia who was consulted for management of chronic medical conditions status post lumbar spine surgery on 09/28/22. Surgeries performed per operative note: 1. Revision decompression with bilateral medial facetectomies and foraminotomies L3-L4, L4-5 and L5-S1. #2 posterior spinal fusion L4-L5 L5-S1. #3 placement posterior instrumentation L4-5 L5-S1. #4 interbody fusion L4-L5 L5-S1. #5 placement of Spira 11 x 26 mm at L4-5 and 13 x 26 mm at L5-S1. #6 placement locally harvested morselized autograft in the posterior gutters. #7 placement of I factor combined with V toss in the interbody space and posterior gutters. Reviewed outpatient 07/27/22 MRI L spine w/o contrast. Impression. 1. Decreased, small right central/right subarticular caudally directed disc extrusion abutting the right L5 transiting spinal nerve roots and mildly narrowing the right subarticular recess at L4-L5. 2. Increased posterior central and right central cranially directed disc extrusion at L5-S1 with increased mass effect on the right S1 transiting spinal nerve roots and moderate narrowing of the right-sided articular recess. Increased, mild central canal stenosis at L5-S1. -Pain regimen (prn Tylenol, oxycodone, and Dilaudid), Decadron 6mg dailyx3, postop ancef, and PT per ortho spine. Prn hydroxyzine for anxiety. q6 Miralax. -Kade of mgt per ortho (4) Neurogenic claudication due to lumbar spinal stenosis: Plan: Chronic, see above. Prior to this, had hx of lumbar discectomy x3. Continue home gabapentin 100mg PO TID. (5) Morbid obesity with BMI of 40.0-44.9, adult: Plan: Check a1c with AM labs. (6) Missed period: Plan: negative test (7) Microscopic hematuria: Plan: Per 09/02/22 preop labs. Trace blood. 5-10 RBC /hpf on microscopy. PCP to follow. (8) Hyperlipidemia: (9) Anxiety: Plan: Stable, continue home citalopram 20mg PO qam. Plan sign off Admission and Anticipated Discharge Date Admission Date: September 28, 2022 Subjective patient seen and examined, doing well post surgery, hoping to be discharged today Review of Systems Review of Systems: All systems reviewed are negative, apart from the ones contained in the history. Physical Exam Physical Exam: The patient is awake, alert and oriented 3, well developed and well nourished, normocephalic and atraumatic, lying in bed and in no acute distress. HEENT--PERRL, EOMI, mucous membranes and oropharynx mildly dry Neck--supple. No JVD. No bruits. Thyroid normal, trachea midline, no adenopathy. Heart--normal S1 and S2. No murmurs, rubs or gallops. Lungs--clear bilaterally, no respiratory distress, no accessory muscle use. Abdomen--normal bowel sounds and soft. Mild epigastric and left sided abdominal pain Extremities--no cyanosis or clubbing. No edema. Dermatologic--normal skin turgor, normal color, no abnormal lymph nodes, no rash. Neurologic--cranial nerves II through XII grossly intact. Rheumatologic--normal range of motion. Psychiatric--normal affect. Results & Data Results & Data Vital Signs (Past 12 Hours) Vital Signs Temp Pulse Resp BP Pulse Ox O2 Del Method 10/01/22 07:55 98.1 F 75 18 126/81 98 Room Air PG Care Time/CCT Total # of Minutes Spent Total Time Spent with Patient: Total time spent is greater than 50% in coordination of care (as documented) at patient's floor/unit and/or counseling patient: Coding Level of Care Code 57776 SUB INP/OBS CARE 2/35MIN Diagnoses Hypertension I10 Iron deficiency anemia D50.9 Status post lumbar spine operation Z98.890 Neurogenic claudication due to lumbar spinal stenosis M48.062 Morbid obesity with BMI of 40.0-44.9, adult E66.01; Z68.41 Missed period N92.6 Microscopic hematuria R31.29 Hyperlipidemia E78.5 Anxiety F41.9 Time Spent (min) 35
--- NOTE | 2022-10-05 07:50 | Discharge Summary ---
Date of Service October 05, 2022 Admission HPI Per Admitting Provider This is a 32-year-old female that presents with persistent back and leg pain after failing since course of nonoperative care she is here for surgical invention. Admission Exam (Per Admitting) Constitutional WD/WN, vitals as above Eyes normal visual brown by confrontation ENMT external ear and nose normal, oropharynx normal Neck normal visual inspection Respiratory normal respiratory effort Cardiovascular Extremities: normal capillary refill Gastrointestinal (Abdomen) Inspection/Auscultation: abdomen normal to inspection Musculoskeletal Spine: + pain with thoraco-lumbar ROM and + lumbar spinal tenderness Extremities: extremities normal to inspection and strength 5/5 throughout Skin no rashes, warm and dry Neurologic normal touch/pain/proprioception and moves all extremities Psychiatric A+Ox3, euthymic affect Eye Contact: good eye contact Discharge Data Consultations 09/28/22 13:21 Consult Hospitalist Routine Procedures Performed Operation Date: 09/28/22 10:05 Actual Procedures p L4-S1 Revision Decompression and Fusion, Spinal Cord Monitoring(Not Applicable) - Rolando Orellana, Hospital Course (1) Neurogenic claudication due to lumbar spinal stenosis: Deya underwent a revision decompression instrumented fusion L4-S1 by Dr. Orellana on September 28, 2022. She had an uneventful hospital course. Pain was controlled. She participated in physical therapy daily and made progress. Lab values were stable. She was subsequently discharged home on postoperative day 3. Discharge Instructions ACTIVITY RECOMMENDATIONS: SELF CARE INSTRUCTIONS AFTER THORACIC/LUMBAR FUSIONS 1. You may walk to your tolerance. It is good exercise for your legs and back. Expect some back and intermittent leg aches and pains. 2. You may perform "counter-top" level activities (make a sandwich, brionna with a project, etc.). 3. No bending or lifting of more than 10 pounds or back twisting of any nature (roll like a log when turning in bed). 4. You may ride in a car for 20-30 minutes at a time. No driving until after your first visit with your doctor. 5. Frequent changes of position and restricting sitting to 30 minutes at a time will help limit the amount of back spasms and stiffness you may experience. 6. You may discontinue the use of ambulatory aids (cane, crutches, etc.) once your strength and confidence allow. 7. You may trim machine operator the shower and let water strike your incision when you arrive home at least once daily. Do not take a tub bath, sit in a hot tub or go into a swimming pool until after your first recheck in the office. SPECIAL CARE INSTRUCTIONS: VERY IMPORTANT TO READ AND REVIEW A. Your surgical incision has been closed with a cosmetic suture under the skin that will dissolve in about 6 weeks. In 14 days, you can use a pair of clean scissors and cut the suture that is left outside of the skin at the ends of your incision. 1. The small skin tapes can be removed 7 days after surgery if they have not fallen off by that point. 2. You may keep the wound open to air as much as possible to promote healing after post-op day number 5 unless told otherwise by your doctor. 3. If you think the wound looks like it is becoming infected (redness or worsening drainage) and/or you are experiencing fever, chill or worsening back pain and muscle spasms, contact the office so that we may evaluate you as soon as possible. B. Complications are uncommon, but please contact us if you have any signs or symptoms of: 1. wound infection (fever higher than 102.5 degrees F, redness, separation of wound, drainage, or increasing pain from the incision) 2. blood clots in legs (pain, swelling, redness and warmth in legs) 3. urinary tract infection (fever higher than 102.5 degrees F, burning upon urination or increased frequency of urination) 4. nerve problems (inability to walk on your toes or heels, numbness, loss of bowel or bladder control) 5. any other symptoms that concern you C. Please call the office at if you have any concerns or questions about your operation or recovery. D. No smoking! Smoking drastically decreases the chance of a solid fusion. E. Do not take any anti-inflammatory medications (Indocin, Advil, Motrin, Aspirin, Naprosyn, etc.) as these may inhibit the chance of a solid fusion. Tylenol is okay to take for pain. MANAGING PAIN AFTER SPINAL SURGERY 1. Narcotic medication is intended for short-term use and will be provided for surgical pain. Surgical pain usually lasts for a period of 4-6 weeks. Narcotic medication includes Percocet, Vicodin, Darvocet, Tylenol #3 or Lortab. 2. Longer-term pain is more appropriately treated with non-narcotic medication such as Tylenol ES. 3. Muscle spasm is not appropriately treated with narcotics. Muscle relaxers such as Soma, Flexeril or Skelaxin can be used along with Tylenol ES. 4. Remember that we all live with some "aches and pains". This is not unusual or uncommon after an injury or as we get older. a. Back pain is expected and may include muscle spasms for 4 to 6 weeks after surgery. The pain should gradually improve. If the pain worsens for no apparent reason, please contact the office. b. Intermittent leg pain may also be experienced and should not be concerned about unless it worsens for no apparent reason. If so, please contact the office. 5. We will provide appropriate medication within the normal guidelines of their prescribed use. We will also be very cautious and aware of potential abuse and extended duration of patients' medication needs. a. Pain medications are for your comfort and to assist with sleep and rest so that the tissue can heal. They are not provided in order to return to normal activity and should not be used through the day. To do so or worsening pain at night can result from ongoing tissue damage and development of tolerance to the prescribed medicine. 6. Please allow 2-3 days to process refills. Prescriptions will not be mailed but must be picked up at the office. FOLLOW UP VISIT: Keep your scheduled follow-up appointment. Any questions, please call the office at .
== END 2022-10-01 11:57 | disposition home or self-care (01) | DRG 454 ==
LOC: ASU 08:18 → 3W 12:10 → SUATTDRO 12:10